=== PATIENT | male | born 1985 | race Two or more races ===

== ENCOUNTER 2022-03-02 08:14 | Emergency (ER) | payer BC, OTHER ==
[~2022-03-02] VITALS: Ht 177.8 cm; Wt 85.1 kg
[2022-03-02] MEDS ORDERED: MECLIZINE HCL 25 MG TAB PO ONE (08:45)
[2022-03-02] MEDS ORDERED: SODIUM CHLORIDE 0.9% 1,000 ML IV ONE (08:45)
[2022-03-02 08:47] LABS: Basophils # (auto) 0 10 ^3/uL (0-0.2); Basophils % (auto) 0.7 % (0.0-2.0); Eosinophils # (auto) 0.2 10 ^3/uL (0-0.8); Eosinophils % (auto) 3.2 % (0.0-7.0); Hematocrit 46.8 % (41.0-53.0); Hemoglobin 16.4 g/dL (13.5-17.5); Lymphocytes # (auto) 2.2 10 ^3/uL (0.4-5.4); Lymphocytes % (auto) 35.3 % (10.0-50.0); Mean Corpuscular Hemoglobin 29.1 pg (28.0-32.0); Mean Corpuscular Volume 83.1 fL (80.0-100.0); Monocytes # (auto) 0.4 10 ^3/uL (0-1.3); Monocytes % (auto) 5.8 % (0.0-12.0); Neutrophils # (auto) 3.4 10 ^3/uL (1.6-8.6); Nucleated Red Blood Cells % 0.2 %; Red Blood Cells 5.63 10^6/uL (4.5-5.90); Red Cell Distribution Width 13.4 % (11.8-14.3); White Blood Cell 6.3 10^3/uL (4.4-10.8)
[2022-03-02 09:05] LABS: Albumin 4.2 g/dL (3.4-5.0); BUN/Creatinine Ratio 14.3; Calcium 9.4 mg/dL (8.5-10.1); Potassium 3.8 mmol/L (3.5-5.1)
[2022-03-02 09:08] LABS: Bilirubin, Total 0.9 mg/dL (0.2-1.0); Total Protein 7.1 g/dL (6.4-8.2)
[2022-03-02 10:24] LABS: Urine WBC None Seen /hpf (0 - 3)
[2022-03-02 10:36] LABS: Urine Bacteria NONE SEEN /hpf (None Seen); Urine Blood Negative /uL (Negative); Urine Specific Gravity 1.006 (1.001-1.035)
[2022-03-02 10:52] VITALS: BP 150/60
[2022-03-02] MEDS ORDERED: MECL1TAB42 PO (10:52)
== END 2022-03-02 10:56 | disposition home or self-care (01) ==
LOC: ER 08:14
DX: R55 Syncope and collapse (principal); R42 Dizziness and giddiness; I10 Essential (primary) hypertension
CPT/HCPCS: 36415; 70450; 71046; 80053; 81001; 83735; 84443; 85025; 93005; 96360; 96361; 99285; J7030; J8597